=== PATIENT | female | born 1990 | race Two or more races ===

== ENCOUNTER 2021-10-12 11:13 | Emergency (ER) | payer OTHER ==
[~2021-10-12] VITALS: Ht 167.6 cm; Wt 78.9 kg
[~2021-10-12 11:13] MED LIST: FOLIC ACID1 MG PO; [UNRECOGNIZED DRUG - OTHER] PO
[2021-10-12] MEDS ORDERED: VISTARIL50 MG PO (12:25)
== END 2021-10-12 12:47 | disposition home or self-care (01) ==
LOC: ER 11:13
DX: L29.9 Pruritus, unspecified (principal); R21 Rash and other nonspecific skin eruption; Z88.6 Allergy status to analgesic agent; Z88.8 Allergy status to other drugs, medicaments and biological substances

== ENCOUNTER 2021-11-30 08:00 | Outpatient (CLI) | payer OTHER ==
[~2021-11-30 08:00] MED LIST changes: +VISTARIL50 MG PO
== END 2021-11-30 08:05 | disposition home or self-care (01) ==
LOC: PPH VACUNA 08:00
PROVIDERS: ATTEND Emergency Medicine Pediatric Emergency Medicine
DX: Z23 Encounter for immunization (principal)